=== PATIENT | male | born 1935 | race Caucasian/White ===

== ENCOUNTER → 2017-02-02 | Outpatient (CLI) | payer MEDICARE | END | disposition home or self-care (01) | LOC: PCVCIMAG 07:58 | PROVIDERS: ATTEND Internal Medicine | DX: I71.4 Abdominal aortic aneurysm, without rupture (principal); I73.9 Peripheral vascular disease, unspecified; I65.23 Occlusion and stenosis of bilateral carotid arteries; I25.10 Atherosclerotic heart disease of native coronary artery without angina pectoris; I25.5 Ischemic cardiomyopathy; I10 Essential (primary) hypertension; Z95.1 Presence of aortocoronary bypass graft | CPT/HCPCS: 80061; 93005; 93306; 93880; 93978; G0463 ==

== ENCOUNTER → 2017-08-05 | Outpatient (CLI) | payer MEDICARE | END | disposition home or self-care (01) | LOC: PCVCCLINIC 11:46 | PROVIDERS: ATTEND Internal Medicine | DX: I25.10 Atherosclerotic heart disease of native coronary artery without angina pectoris (principal); I25.5 Ischemic cardiomyopathy; I10 Essential (primary) hypertension; I65.23 Occlusion and stenosis of bilateral carotid arteries; I71.4 Abdominal aortic aneurysm, without rupture; E78.5 Hyperlipidemia, unspecified; R00.1 Bradycardia, unspecified; I44.7 Left bundle-branch block, unspecified; Z79.82 Long term (current) use of aspirin; Z79.899 Other long term (current) drug therapy; Z88.0 Allergy status to penicillin; Z87.891 Personal history of nicotine dependence; R94.31 Abnormal electrocardiogram [ECG] [EKG] | CPT/HCPCS: 80061; 93005; G0463 ==

== ENCOUNTER → 2018-02-05 | Outpatient (CLI) | payer MEDICARE | END | disposition home or self-care (01) | LOC: PCVCIMAG 07:52 | DX: I65.23 Occlusion and stenosis of bilateral carotid arteries (principal); I25.119 Atherosclerotic heart disease of native coronary artery with unspecified angina pectoris; I25.5 Ischemic cardiomyopathy; I10 Essential (primary) hypertension; E78.5 Hyperlipidemia, unspecified; I71.4 Abdominal aortic aneurysm, without rupture; I44.7 Left bundle-branch block, unspecified; Z95.1 Presence of aortocoronary bypass graft; Z87.891 Personal history of nicotine dependence; Z79.899 Other long term (current) drug therapy; Z79.82 Long term (current) use of aspirin | CPT/HCPCS: 80061; 93005; 93880; 93978; G0463 ==

== ENCOUNTER → 2018-08-09 | Outpatient (CLI) | payer MEDICARE ==
[~2018-08-09] MED LIST: REGADENOSON 0.4 MG/5 ML DISP.SYRIN. IV ONE
--- NOTE | 2018-08-09 12:21 | PCVCIMAG ---
APPROVED REPORT Imaging Protocol: Rest Tc-99m/Stress Tc-99m 1 day Study performed: 08/09/2018 08:53:06 Indication: CAD , Dyspnea, LBBB Patient Location: Out-Patient Stress Nurse: Adali Jean RN, Shania Nguyen RN CO Tech:Lauren Franky [facility] Ht: 6 ft 0 in Wt: 200 lbs BSA: 2.13 m2 HR: 61 bpm BP: 136/63 mmHg BMI: 27.1 Medical History Medical History: Hyperlipidemia, Former Smoker, CVD, LBBB Medications: ASA, Metoprolol, Simvastatin, Valsartan Allergies: VLADIMIR, Cipro, PCN, Sulfa, Vioxx Previous Cardiac Procedures: CABG Pretest Chest Pain Characteristics: No chest pain Exercise History: Physically active Meds Held (24 hrs): Metoprolol Resting Data Rest SPECT myocardial perfusion imaging was performed in supine position 45 minutes following the intravenous injection of 10.3 mCi of Tc-99m Tetrofosmin. Time of rest injection: 814 Date: 08/09/2018 Administration Route: IV Administration Site: Right AC Pharmacologic Stress Pharmacologic stress test was performed by injecting Regadenoson 0.4 mg IV push over 10-15 seconds immediately followed by the intravenous injection of 32.1 mCi of Tc-99m Sestamibi. Time of stress injection: 929 Administration Route: IV Administration Site: Right AC Gated Stress SPECT was performed 45 minutes after stress injection. The images were gated to evaluate regional wall motion and calculate left ventricular ejection fraction. Stress Test Details Stress Test: Pharmacologic stress testing performed using 0.4 mg of regadenoson per 5 mL given IV over 10 seconds. Reason for pharmacologic stress test: physical limitation, LBBB. HRMax Heart Rate (APMHR): 138 bpm Resting HR: 61 bpmTarget HR (85% APMHR): 117 bpm Max HR Achieved: 75 bpm % of APMHR: 54 Recovery HR: 68 bpm BP Resting BP: 136/63 mmHg Max BP: 152/65 mmHg Recovery BP: 142/63 mmHg ECG Resting ECG: Sinus Rhythm, LBBB Stress ECG: Sinus Rhythm, LBBB ST Change: Nondiagnostic V-pacing or LBBB Arrhythmia: None Recovery ECG: Sinus Rhythm, LBBB Recovery ST Change: Nondiagnostic V-pacing or LBBB Clinical Reason for Termination: Completed protocol Stress Symptoms: None Exercise duration: 0 min 55 sec Symptoms resolved during recovery. Stress ECG Conclusion Non-diagnostic electrocardiogram due to left bundle branch block ECG: Non-ischemic Study Quality Study: Good Study Data Post stress, the left ventricular ejection was 30%.. SSS: 22 SRS: 18 SDS: 4 TID = 0.85. 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 Wall Motion Moderately severe decreased left ventricular systolic function. 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 Post stress, the left ventricular ejection was 30%. No prior study available for comparison. Interpreted by: Diego Fong MD Electronically Approved: 08/09/2018 12:03:19 <Conclusion> Non-diagnostic electrocardiogram due to left bundle branch block ECG: Non-ischemic
== END | disposition home or self-care (01) ==
LOC: PCVCIMAG 07:50
PROVIDERS: ATTEND Internal Medicine
DX: I25.119 Atherosclerotic heart disease of native coronary artery with unspecified angina pectoris (principal); I44.7 Left bundle-branch block, unspecified; I25.5 Ischemic cardiomyopathy; R06.00 Dyspnea, unspecified; I71.4 Abdominal aortic aneurysm, without rupture; E78.5 Hyperlipidemia, unspecified; I10 Essential (primary) hypertension; I65.23 Occlusion and stenosis of bilateral carotid arteries; Z87.891 Personal history of nicotine dependence; Z79.82 Long term (current) use of aspirin
CPT/HCPCS: 78452; 93005; 93017; A9500; G0463; J2785

== ENCOUNTER → 2019-01-24 | Outpatient (CLI) | payer MEDICARE ==
--- NOTE | 2019-01-24 09:14 | PCVCIMAG ---
APPROVED REPORT Indications Stenosis Risk Factors Hypertension: Hyperlipidemia CAD, Surgery/Intervention Endarterectomy: right left Doppler Spectral Velocity Analysis PSV / EDVPSV / EDV ECA (R) 116 / 0 cm/sECA (L) 179 / 7 cm/s dICA (R) 65 / 17 cm/sdICA (L) 86 / 21 cm/s Michael (R) 51 / 10 cm/smICA (L) 89 / 21 cm/s pICA (R) 167 / 15 cm/spICA (L) 95 / 16 cm/s Bulb (R) 155 / 9 cm/sBulb (L) 112 / 8 cm/s dCCA (R) 102 / 10 cm/sdCCA (L) 108 / 16 cm/s mCCA (R) 98 / 14 cm/smCCA (L) 120 / 18 cm/s Vert (R) 65 / 10 cm/sVert (L) 28 / 8 cm/s ICA/CCA 1.64ICA/CCA 0.88 Basic Measurements Blood Pressure: Pulses: Right Left RightLeft Brachial(Sitting) 134/95orIz087/70mmHgTemporal Real Time B-Mode Imaging Vert. (R)AntegradeVert. (L)Antegrade Findings The right carotid bulb has moderately severe plaque. The right proximal internal carotid artery shows 60-70% stenosis, small mobile component to plaque. The right common carotid artery shows no significant stenosis. The right external carotid artery shows no significant stenosis. The left carotid bulb has moderate plaque. The left proximal internal carotid artery shows <40% stenosis. The left common carotid artery shows <40% stenosis. The left external carotid artery shows >50% stenosis. Conclusion 1. Right proximal internal carotid artery shows 60-70% stenosis, small mobile component to plaque; prior CEA 2. Left internal carotid artery stenosis (<40%) 3. Antegrade vertebral flow Similar to Jan, 2018
--- NOTE | 2019-01-24 10:35 | PCVCIMAG ---
EXAM: AORTOILIAC DUPLEX INDICATION: Abdominal aortic aneurysm. FINDINGS: AORTA: Suprarenal aorta measures maximum diameter of 3.0 cm. There is a fusiform infrarenal aortic aneurysm. The infrarenal aorta measures maximum diameter of 3.5 x 4.4 cm. No aortic stenosis. RIGHT COMMON ILIAC ARTERY: Maximum diameter is 1.7 cm. 50% stenosis RIGHT EXTERNAL ILIAC ARTERY: No significant stenosis. LEFT COMMON ILIAC ARTERY: Maximum diameter is 1.4 cm. No significant stenosis. LEFT EXTERNAL ILIAC ARTERY: No significant stenosis. IMPRESSION: 4.4 cm infrarenal abdominal aortic aneurysm has increased from 4.1 cm on January 2018 study. Further evaluation with CT of the abdomen and pelvis may be of value. 50% stenosis right common iliac artery. LOC:[id number]
== END | disposition home or self-care (01) ==
LOC: PCVCIMAG 08:20
PROVIDERS: ATTEND Internal Medicine
DX: I65.23 Occlusion and stenosis of bilateral carotid arteries (principal); I71.4 Abdominal aortic aneurysm, without rupture; I10 Essential (primary) hypertension; E78.5 Hyperlipidemia, unspecified; I25.10 Atherosclerotic heart disease of native coronary artery without angina pectoris; I25.5 Ischemic cardiomyopathy; I44.7 Left bundle-branch block, unspecified; Z87.891 Personal history of nicotine dependence
CPT/HCPCS: 36415; 80061; 93005; 93880; 93978; G0463

== ENCOUNTER → 2019-04-20 | Outpatient (CLI) | payer MEDICARE | END | disposition home or self-care (01) | LOC: PCVCCLINIC 11:00 | PROVIDERS: ATTEND Internal Medicine | DX: I25.10 Atherosclerotic heart disease of native coronary artery without angina pectoris (principal); I11.0 Hypertensive heart disease with heart failure; I50.22 Chronic systolic (congestive) heart failure; I25.5 Ischemic cardiomyopathy; E78.5 Hyperlipidemia, unspecified; I44.7 Left bundle-branch block, unspecified; I71.4 Abdominal aortic aneurysm, without rupture; Z95.1 Presence of aortocoronary bypass graft; Z87.891 Personal history of nicotine dependence | CPT/HCPCS: 93005; G0463 ==

== ENCOUNTER → 2019-04-21 | Outpatient (CLI) | payer MEDICARE ==
--- NOTE | 2019-04-21 09:39 | PCVCIMAG ---
APPROVED REPORT Study performed: 04/21/2019 08:13:59 EXAM: Comprehensive 2D, Doppler, and color-flow Echocardiogram Patient Location: Echo lab Status: routine BSA: 2.13 HR: 60 bpmBP: 110/70 mmHg Rhythm: NSR Other Information Study Quality: Adequate Risk Factors: Cardiac Risk Factors: HTN, Hyperlipidemia Indications CAD CABG, Ischemic cardiomyopathy, LBBB 2D Dimensions IVSd: 7.70 (7-11mm)LVOT Diam: 21.49 (18-24mm) LVDd: 71.09 mm LVPWs: 46.27 mm PWd: 7.46 (7-11mm)Ascending Ao: 31.90 (22-36mm) LVDs: 62.07 (25-40mm) Left Atrium: 52.32 (27-40mm) Aortic Root: 26.40 mm LV Single Plane 4CH: 29.30 % LV Single Plane 2CH: 36.17 % Biplane EF: 35.2 % Volumes Left Atrial Volume (Systole) Single Plane 4CH: 74.01 mLSingle Plane 2CH: 68.53 mL LA ESV Index: 34.00 mL/m2 Aortic Valve AoV Peak Landry.: 2.15 m/s AO Peak Gr.: 18.47 mmHgLVOT Max P.31 mmHg AO Mean Gr.: 10.04 mmHgLVOT Mean P.27 mmHg AO V2 Mean: 1.51 m/sLVOT Max V: 0.99 m/s AO V2 VTI: 48.50 cmLVOT Mean V: 0.73 m/s JANET (VTI): 1.75 [id number] V1 VTI: 23.36 cm JANET Vmax: 1.66 cm2 SV (LVOT): 84.70 mL Mitral Valve E/A Ratio: 3.5 MV Decel. Time: 159.98 ms MV E Max Landry.: 1.38 m/s MV A Landry.: 0.40 m/s TDI E/Lateral E': 13.80E/Medial E': 27.60 Medial E' Landry.: 0.05 m/s Lateral E' Landry.: 0.10 m/s Pulmonary Valve PV Peak Gr.: 6.55 mmHg Pulmonary Vein P Vein S: 0.51 m/sP Vein A: 0.36 m/s P Vein D: 0.25 m/sP Vein A Dur.: 103.8 msec P Vein S/D Ratio: 2.04 Tricuspid Valve TR Peak Landry.: 2.70 m/s TR Peak Gr.: 29.27 mmHg Left Ventricle Left ventricle is mildly dilated. There is normal left ventricular wall thickness. Left ventricular systolic function is moderate to severely decreased. Inferoseptal hypokinesis LVEF is 30-35%. Severe diastolic dysfunction is present (restrictive filling). Right Ventricle The right ventricle is normal size. The right ventricular systolic function is normal. Atria Left atrium is mildly dilated. The right atrium size is normal. Aortic Valve Aortic valve leaflets are mildly sclerotic No aortic regurgitation is present. There is no aortic valvular stenosis. Mitral Valve The mitral valve is normal in structure. Mild to moderate mitral regurgitation. No evidence of mitral valve stenosis. Tricuspid Valve The tricuspid valve is normal in structure. Trace tricuspid regurgitation. Pulmonary artery pressure 35 mmHg. Pulmonic Valve The pulmonary valve is normal in structure. There is no pulmonic valvular regurgitation. Great Vessels The aortic root is normal in size. IVC is normal in size and collapses >50% with inspiration. Pericardium There is no pericardial effusion. <Conclusion> Left ventricular systolic function is moderate to severely decreased. Inferoseptal hypokinesis LVEF is 30-35%. Severe diastolic dysfunction Left atrium is mildly dilated. Aortic valve leaflets are mildly sclerotic. No aortic regurgitation or stenosis. The mitral valve is normal in structure. Mild to moderate mitral regurgitation. Trace tricuspid regurgitation. Pulmonary artery pressure of 35 mmHg. There is no pericardial effusion.
== END | disposition home or self-care (01) ==
LOC: PCVCIMAG 07:50
PROVIDERS: ATTEND Internal Medicine
DX: I08.0 Rheumatic disorders of both mitral and aortic valves (principal); I25.10 Atherosclerotic heart disease of native coronary artery without angina pectoris; I25.5 Ischemic cardiomyopathy; I44.7 Left bundle-branch block, unspecified; Z95.1 Presence of aortocoronary bypass graft; Z88.8 Allergy status to other drugs, medicaments and biological substances; Z87.891 Personal history of nicotine dependence
CPT/HCPCS: 93306

== ENCOUNTER → 2019-06-02 | Outpatient (CLI) | payer MEDICARE | END | disposition home or self-care (01) | LOC: PCVCCLINIC 15:16 | PROVIDERS: ATTEND Internal Medicine | DX: I25.10 Atherosclerotic heart disease of native coronary artery without angina pectoris (principal); I11.0 Hypertensive heart disease with heart failure; I50.22 Chronic systolic (congestive) heart failure; I25.5 Ischemic cardiomyopathy; I44.7 Left bundle-branch block, unspecified; I71.4 Abdominal aortic aneurysm, without rupture; I65.23 Occlusion and stenosis of bilateral carotid arteries; D64.9 Anemia, unspecified; E78.5 Hyperlipidemia, unspecified; Z79.82 Long term (current) use of aspirin; Z79.899 Other long term (current) drug therapy; Z95.1 Presence of aortocoronary bypass graft; Z82.49 Family history of ischemic heart disease and other diseases of the circulatory system; Z80.9 Family history of malignant neoplasm, unspecified; Z87.891 Personal history of nicotine dependence; Z72.89 Other problems related to lifestyle; Z88.2 Allergy status to sulfonamides; Z88.1 Allergy status to other antibiotic agents; Z88.8 Allergy status to other drugs, medicaments and biological substances | CPT/HCPCS: 93005; G0463 ==